=== PATIENT | male | born 1950 | race Hispanic/Latino ===

== ENCOUNTER 2019-08-15 11:41 | Emergency (ER) | payer BC ==
--- NOTE | 2019-08-15 11:50 | Event Note ---
ED Screening Note Date of service: 08/15/19 Time: 11:46 ED Screening Note: This is a 68 y.o. M. that presents to the ER with left sided facial paralysis since last night. PMH of HTN States symptoms started last night around 1900. Patient also reports left ear pain. This initial assessment/diagnostic orders/clinical plan/treatment(s) is/are subject to change based on patients health status, clinical progression and re- assessment by fellow clinical providers in the ED. Further treatment and workup at subsequent clinical providers discretion. Patient/guardian urged not to elope from the ED as their condition may be serious if not clinically assessed and managed. Initial orders include: Stroke protocol
--- NOTE | 2019-08-15 12:21 | Cat Scan Report ---
NONENHANCED CT SCAN OF THE BRAIN: INDICATION: MAIN: neuro deficits <6hrs or sx present upon awakening LT SIDE DROOP SLURRED SPEECH LKW LAST NIGHT . TECHNIQUE: Routine CT head without contrast. Sagittal and coronal reformatted images were obtained. A ll CT scans at this location are performed using CT dose reduction for ALARA by means of automated ex posure control. COMPARISON: None. FINDINGS: BRAIN / INTRACRANIAL CONTENTS: Hemorrhage:No intracranial hemorrhage; no subarachnoid hemorrhage Stroke mimics: None Acute/subacute territorial infarction: Hussein-white matter interface: No blurring; normal Insular cortex: Normal Basal ganglia: Normal Wedge shaped parenchymal low density area: Not present Cortical sulci: Not effaced Acute/subacute Lacunar infarctions: None Vasculopathy: Dense middle cerebral artery sign: Not present Internal carotid artery terminus: Normal Basilar artery:Normal Middle cerebral artery branches in the sylvian fissure (Dot sign): Normal Calcified embolus: Not present ASPECT score: Not applicable Chronic lesions: Chronic ischemic lesions are seen in the right corpus stratum. Craniocervical junction:No significant abnormality Orbits:No significant abnormality Paranasal sinuses/mastoids:No significant abnormality Additional findings: None IMPRESSION: No intracerebral hemorrhage or stroke mimics No acute/subacute infarction This exam was performed as part of a code stroke protocol. The exam was completed at on 08/15/2019 11:1 0 AM. The exam was reviewed at and was notified at . Signer Name: Cyndee Womack MD Signed: 08/15/2019 12:17 PM Workstation Name: [employer]
[2019-08-15 12:49] LABS: Basophils % (Auto) 0.5 % (0.0-1.8); Eosinophils # (Auto) 0.1 K/mm3 (0.0-0.4); Eosinophils % (Auto) 1.2 % (0.0-4.3); Hematocrit 42.6 % (35.5-45.6); Hemoglobin 14.7 gm/dl (11.8-15.2); Lymphocytes # (Auto) 1.2 K/mm3 (1.2-5.4); Lymphocytes % (Auto) 15.9 % (13.4-35.0); Mean Corpuscular HGB Conc 34 % (32-34); Mean Corpuscular Volume 95 fl (84-94); Monocytes # (Auto) 0.4 K/mm3 (0.0-0.8); Platelet Count 288 K/mm3 (140-440); Red Blood Count 4.48 M/mm3 (3.65-5.03); Red Cell Distribution Width 13.8 % (13.2-15.2)
[2019-08-15 13:08] LABS: INR 0.96 (0.87-1.13); Partial Thromboplastin Time 29.6 Sec. (24.2-36.6)
[2019-08-15 13:11] LABS: BUN/Creatinine Ratio 20; Blood Urea Nitrogen 18 mg/dL (9-20); Calcium 9.6 mg/dL (8.4-10.2); Hemolysis Index 3
[2019-08-15 13:50] VITALS: BP 171/94
--- NOTE | 2019-08-15 14:01 | Emergency Department Report ---
HPI - General Chief Complaint: Neuro Symptoms/Deficit Time Seen by Provider: 08/15/19 11:46 - HPI HPI: Room 19 The patient is a 68-year-old male present with a chief complaint of left facial weakness. The patient states he was in the bathroom looking in the mirror last night when he noticed a small was not symmetric. Patient denies ever having dysarthria dysphasia or paresthesia. Patient denies extremity weakness. Patient denies headache. Patient states she has had a drainage coming from his left ear for the past 10 days after using a mohr to scratch it. Patient denies history of fever ED Past Medical Hx - Past Medical History Previous Medical History?: Yes Hx Hypertension: Yes - Surgical History Past Surgical History?: Yes Additional Surgical History: elbow surgery - Family History Family history: no significant - Social History Smoking Status: Never Smoker Substance Use Type: None - Medications Home Medications: Home Medications Medication Instructions Recorded Confirmed Last Taken Type Acyclovir [Zovirax Tab] 400 mg PO 5XD #50 tab 08/15/19 Unknown Rx Dextran 70/Hypromellose 2 drops OS PRN PRN #15 ml 08/15/19 Unknown Rx [Artificial Tears] predniSONE [Deltasone] 80 mg PO QDAY #28 tab 08/15/19 Unknown Rx ED Review of Systems ROS: Stated complaint: POSS STROKE Other details as noted in HPI Constitutional: no symptoms reported Eyes: denies: eye pain ENT: denies: throat pain Respiratory: no symptoms reported Cardiovascular: denies: chest pain Endocrine: no symptoms reported Gastrointestinal: denies: abdominal pain Genitourinary: denies: dysuria Neurological: denies: headache, numbness, paresthesias Physical Exam - Physical Exam Vital Signs: Vital Signs 08/15/19 08/15/19 11:44 13:49 Temperature 97.9 F Pulse Rate 96 H 86 Respiratory 18 16 Rate Blood Pressure 209/111 Blood Pressure 171/94 [Left] O2 Sat by Pulse 97 98 Oximetry Physical Exam: GENERAL: The patient is well-developed well-nourished male sitting on stretcher not appear to be in acute distress. [] HEENT: Normocephalic. Atraumatic. Extraocular motions are intact. Patient has moist mucous membranes. TMs obscured by cerumen bilaterally NECK: Supple. Trachea midline CHEST/LUNGS: Clear to auscultation. There is no respiratory distress noted. HEART/CARDIOVASCULAR: Regular. There is no tachycardia. There is no gallop rub or murmur. ABDOMEN: Abdomen is soft, nontender. Patient has normal bowel sounds. There is no abdominal distention. SKIN: There is no rash. There is no edema. There is no diaphoresis. NEURO: The patient is awake, alert, and oriented. The patient is cooperative. The patient has no focal neurologic deficits. The patient has normal speech and gait. MUSCULOSKELETAL: There is no tenderness or deformity. There is no limitation range of motion. There is no evidence of acute injury. 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 Recommends prednisone acyclovir and artificial tears. ED Medical Decision Making - Lab Data Result diagrams: 08/15/19 12:14 08/15/19 12:14 Laboratory Tests 08/15/19 08/15/19 08/15/19 12:14 12:14 12:14 WBC 7.8 RBC 4.48 Hgb 14.7 Hct 42.6 MCV 95 H MCH 33 H MCHC 34 RDW 13.8 Plt Count 288 Lymph % (Auto) 15.9 [place] % (Auto) 5.0 Eos % (Auto) 1.2 Baso % (Auto) 0.5 Lymph # 1.2 [place] # 0.4 Eos # 0.1 Baso # 0.0 Seg Neutrophils % 77.4 H Seg Neutrophils # 6.0 PT 12.9 INR 0.96 APTT 29.6 Thrombin Time Sodium 139 Potassium 4.2 Chloride 99.6 Carbon Dioxide 23 Anion Gap 21 BUN 18 Creatinine 0.9 Estimated GFR > 60 BUN/Creatinine Ratio 20 Glucose 110 H Calcium 9.6 Troponin T < 0.010 08/15/19 12:14 WBC RBC Hgb Hct MCV MCH MCHC RDW Plt Count Lymph % (Auto) [place] % (Auto) Eos % (Auto) Baso % (Auto) Lymph # [place] # Eos # Baso # Seg Neutrophils % Seg Neutrophils # PT INR APTT Thrombin Time 16.0 Sodium Potassium Chloride Carbon Dioxide Anion Gap BUN Creatinine Estimated GFR BUN/Creatinine Ratio Glucose Calcium Troponin T - Radiology Data Radiology results: report reviewed (CT head), image reviewed (CT head) [facility] [address] [place] [address] Cat Scan Report Signed Patient: DAI CHOWDARY MR#: [id number] : 1950 Acct:[id number] Age/Sex: 68 / M ADM Date: 08/15/19 Loc: ED Attending Dr: Ordering Physician: BEAU HANNAH Date of Service: 08/15/19 Procedure(s): CT head/brain wo con Accession Number(s): [id number] cc: BEAU HANNAH NONENHANCED CT SCAN OF THE BRAIN: INDICATION: MAIN: neuro deficits <6hrs or sx present upon awakening LT SIDE DROOP SLURRED SPEECH LKW LAST NIGHT. TECHNIQUE: Routine CT head without contrast. Sagittal and coronal reformatted images were obtained. All CT scans at this location are performed using CT dose reduction for ALARA by means of automated exposure control. COMPARISON: None. FINDINGS: BRAIN / INTRACRANIAL CONTENTS: Hemorrhage:No intracranial hemorrhage; no subarachnoid hemorrhage Stroke mimics: None Acute/subacute territorial infarction: Hussein-white matter interface: No blurring; normal Insular cortex: Normal Basal ganglia: Normal Wedge shaped parenchymal low density area: Not present Cortical sulci: Not effaced Acute/subacute Lacunar infarctions: None Vasculopathy: Dense middle cerebral artery sign: Not present Internal carotid artery terminus: Normal Basilar artery:Normal Middle cerebral artery branches in the sylvian fissure (Dot sign): Normal Calcified embolus: Not present ASPECT score: Not applicable Chronic lesions: Chronic ischemic lesions are seen in the right corpus stratum. Craniocervical junction:No significant abnormality Orbits:No significant abnormality Paranasal sinuses/mastoids:No significant abnormality Additional findings: None IMPRESSION: No intracerebral hemorrhage or stroke mimics No acute/subacute infarction This exam was performed as part of a code stroke protocol. The exam was completed at on 08/15/2019 11:10 AM. The exam was reviewed at and was notified at . Signer Name: Cyndee Womack MD Signed: 08/15/2019 12:17 PM Workstation Name: [email or web address] Transcribed By: ELIS Dict ated By: Cyndee Esparza MD Electronically Authenticated By: Cyndee Esparza MD Signed Date/Time: 08/15/19 121 DD/ TD/TT: - Differential Diagnosis Kauffman's palsy, CVA Critical care attestation.: If time is entered above; I have spent that time in minutes in the direct care of this critically ill patient, excluding procedure time. ED Disposition Clinical Impression: Kauffman's palsy Disposition: DC-01 TO HOME OR SELFCARE Is pt being admited?: No Does the pt Need Aspirin: No Condition: Stable Instructions: Kauffman Palsy (ED) Additional Instructions: Return to the emergency department should you develop worsening symptoms, inability to tolerate food or liquids, high fever or any other concerns Prescriptions: Dextran 70/Hypromellose [Artificial Tears] 2 drops OS PRN PRN #15 ml PRN Reason: Dry Eye(S) predniSONE [Deltasone] 80 mg PO QDAY #28 tab Acyclovir [Zovirax Tab] 400 mg PO 5XD #50 tab Referrals: FABRIZIO VIDES MD [Staff Physician] - 3-5 Days (Dr Vides is a neurologist. Please follow-up with him for further evaluation) Time of Disposition: 16:03
[2019-08-15] MEDS ORDERED: cloNIDine 0.2 MG TAB PO ONE (14:36)
[2019-08-15] MEDS ORDERED: ASPIRIN 325 MG TAB PO ONE (14:36)
--- NOTE | 2019-08-15 16:06 | Emergency Department Report ---
ED Neuro Deficit HPI - General Chief Complaint: Neuro Symptoms/Deficit Stated Complaint: POSS STROKE Time Seen by Provider: 08/15/19 11:46 Source: patient Mode of arrival: Ambulatory Limitations: No Limitations - History of Present Illness Initial Comments: CC: L face droop HPI: * ear infection last 7-10 days on left side * he noted last evening at about 1900 L side face droop * some tingling but no sensory changes * noted increased tearing OS as well * no arm or leg symptoms * since symptoms persisted to ER late morning today * no similar symptoms in the past * STAT neuro consult requested by ED provider PMH: HTN Exam: Vital Signs - 24 hr 08/15/19 08/15/19 08/15/19 11:44 13:43 13:46 Temperature 97.9 F Pulse Rate 96 H 84 82 Respiratory 18 17 18 Rate Blood Pressure 209/111 171/94 Blood Pressure [Left] O2 Sat by Pulse 97 98 Oximetry 08/15/19 08/15/19 08/15/19 13:49 14:00 14:16 Temperature Pulse Rate 86 84 79 Respiratory 16 16 15 Rate Blood Pressure 171/94 171/94 Blood Pressure 171/94 [Left] O2 Sat by Pulse 98 98 99 Oximetry 08/15/19 14:30 Temperature Pulse Rate 91 H Respiratory 13 Rate Blood Pressure 171/94 Blood Pressure [Left] O2 Sat by Pulse 97 Oximetry Lab Results 08/15/19 08/15/19 08/15/19 Range/Units 12:14 12:14 12:14 WBC 7.8 (4.5-11.0) K/mm3 RBC 4.48 (3.65-5.03) M/mm3 Hgb 14.7 (11.8-15.2) gm/dl Hct 42.6 (35.5-45.6) % MCV 95 H (84-94) fl MCH 33 H (28-32) pg MCHC 34 (32-34) % RDW 13.8 (13.2-15.2) % Plt Count 288 (140-440) K/mm3 Lymph % (Auto) 15.9 (13.4-35.0) % Wells % (Auto) 5.0 (0.0-7.3) % Eos % (Auto) 1.2 (0.0-4.3) % Baso % (Auto) 0.5 (0.0-1.8) % Lymph # 1.2 (1.2-5.4) K/mm3 Wells # 0.4 (0.0-0.8) K/mm3 Eos # 0.1 (0.0-0.4) K/mm3 Baso # 0.0 (0.0-0.1) K/mm3 Seg Neutrophils % 77.4 H (40.0-70.0) % Seg Neutrophils # 6.0 (1.8-7.7) K/mm3 PT 12.9 (12.2-14.9) Sec. INR 0.96 (0.87-1.13) APTT 29.6 (24.2-36.6) Sec. Thrombin Time (15.1-19.6) Sec. Sodium 139 (137-145) mmol/L Potassium 4.2 (3.6-5.0) mmol/L Chloride 99.6 (98-107) mmol/L Carbon Dioxide 23 (22-30) mmol/L Anion Gap 21 mmol/L BUN 18 (9-20) mg/dL Creatinine 0.9 (0.8-1.5) mg/dL Estimated GFR > 60 ml/min BUN/Creatinine Ratio 20 % Glucose 110 H (75-100) mg/dL Calcium 9.6 (8.4-10.2) mg/dL Troponin T < 0.010 (0.00-0.029) ng/mL 08/15/19 Range/Units 12:14 WBC (4.5-11.0) K/mm3 RBC (3.65-5.03) M/mm3 Hgb (11.8-15.2) gm/dl Hct (35.5-45.6) % MCV (84-94) fl MCH (28-32) pg MCHC (32-34) % RDW (13.2-15.2) % Plt Count (140-440) K/mm3 Lymph % (Auto) (13.4-35.0) % Wells % (Auto) (0.0-7.3) % Eos % (Auto) (0.0-4.3) % Baso % (Auto) (0.0-1.8) % Lymph # (1.2-5.4) K/mm3 Wells # (0.0-0.8) K/mm3 Eos # (0.0-0.4) K/mm3 Baso # (0.0-0.1) K/mm3 Seg Neutrophils % (40.0-70.0) % Seg Neutrophils # (1.8-7.7) K/mm3 PT (12.2-14.9) Sec. INR (0.87-1.13) APTT (24.2-36.6) Sec. Thrombin Time 16.0 (15.1-19.6) Sec. Sodium (137-145) mmol/L Potassium (3.6-5.0) mmol/L Chloride (98-107) mmol/L Carbon Dioxide (22-30) mmol/L Anion Gap mmol/L BUN (9-20) mg/dL Creatinine (0.8-1.5) mg/dL Estimated GFR ml/min BUN/Creatinine Ratio % Glucose (75-100) mg/dL Calcium (8.4-10.2) mg/dL Troponin T (0.00-0.029) ng/mL NIHSS: * LOC - 0 * LOC questions - 0 * LOC commands - 0 * EOM - 0 * VF - 0 * Face - 1 (mild droop lower face, widened palpebral fissue with decreased eye closure) * Motor Upper Ext - 0 * Motor Lower Ext - 0 * Coordination - 0 * Sensory - 0 * Language - 0 * Speech - 0 * Extinction -0 NIHSS total 1 (LMN droop on left) Impression/Recommendations L [place] Palsy * L LMN droop * impaired eye closure * in setting of concurrent ear infection * suspect L facial nerve inflammation most consistent with Kauffman's Palsy * 1 week course of Acyclovir and Prednisone to optimize recovery (90-95% chance of complete/near-complete recovery with early treatment) * eye care with daytime artificial tears and nighttime ointment/patching to prevent dry eye/corneal abrasion * OK D/c from ED this evening * discussed with ED provider - Related Data Home Medications: Previous Rx's Medication Instructions Recorded Last Taken Type Acyclovir [Zovirax Tab] 400 mg PO 5XD #50 tab 08/15/19 Unknown Rx Dextran 70/Hypromellose 2 drops OS PRN PRN #15 ml 08/15/19 Unknown Rx [Artificial Tears] predniSONE [Deltasone] 80 mg PO QDAY #28 tab 08/15/19 Unknown Rx Allergies/Adverse Reactions: Allergies Allergy/AdvReac Type Severity Reaction Status Date / Time No Known Allergies Allergy Unverified 08/15/19 11:42 ED Review of Systems ROS: Stated complaint: POSS STROKE Other details as noted in HPI Constitutional: no symptoms reported Eyes: denies: eye pain ENT: denies: throat pain Respiratory: no symptoms reported Cardiovascular: denies: chest pain Endocrine: no symptoms reported Gastrointestinal: denies: abdominal pain Genitourinary: denies: dysuria Neurological: denies: headache, numbness, paresthesias ED Past Medical Hx - Past Medical History Previous Medical History?: Yes Hx Hypertension: Yes - Surgical History Past Surgical History?: Yes Additional Surgical History: elbow surgery - Social History Smoking Status: Never Smoker Substance Use Type: None - Medications Home Medications: Home Medications Medication Instructions Recorded Confirmed Last Taken Type Acyclovir [Zovirax Tab] 400 mg PO 5XD #50 tab 08/15/19 Unknown Rx Dextran 70/Hypromellose 2 drops OS PRN PRN #15 ml 08/15/19 Unknown Rx [Artificial Tears] predniSONE [Deltasone] 80 mg PO QDAY #28 tab 08/15/19 Unknown Rx ED Neuro Physical Exam - General Limitations: No Limitations Suspected Stroke: No - NIHSS Assessment Interval: Baseline 1a. Level of Consciousness: alert/keenly responsive 1b. LOC Questions: answers both correctly 1c. LOC Commands: performs tasks correctly 2. Best Gaze: normal 3. Visual: no visual loss 4. Facial Palsy: minor paralysis 5b. Motor Arm Right: no drift 5a. Motor Arm Left: no drift 6a. Motor Leg Left: no drift 6b. Motor Leg Right: no drift 7. Limb Ataxia: absent 8. Sensory: normal 9. Best Language: no aphasia 10. Dysarthria: normal 11. Extinction/Inattention: no abnormality Total Score: 1 Stroke Severity: Minor Stroke ED Course Vital Signs 08/15/19 08/15/19 08/15/19 11:44 13:43 13:46 Temperature 97.9 F Pulse Rate 96 H 84 82 Respiratory 18 17 18 Rate Blood Pressure 209/111 171/94 Blood Pressure [Left] O2 Sat by Pulse 97 98 Oximetry 08/15/19 08/15/19 08/15/19 13:49 14:00 14:16 Temperature Pulse Rate 86 84 79 Respiratory 16 16 15 Rate Blood Pressure 171/94 171/94 Blood Pressure 171/94 [Left] O2 Sat by Pulse 98 98 99 Oximetry 08/15/19 14:30 Temperature Pulse Rate 91 H Respiratory 13 Rate Blood Pressure 171/94 Blood Pressure [Left] O2 Sat by Pulse 97 Oximetry - Lab Data Result diagrams: 08/15/19 12:14 08/15/19 12:14 Lab Results 08/15/19 08/15/19 08/15/19 Range/Units 12:14 12:14 12:14 WBC 7.8 (4.5-11.0) K/mm3 RBC 4.48 (3.65-5.03) M/mm3 Hgb 14.7 (11.8-15.2) gm/dl Hct 42.6 (35.5-45.6) % MCV 95 H (84-94) fl MCH 33 H (28-32) pg MCHC 34 (32-34) % RDW 13.8 (13.2-15.2) % Plt Count 288 (140-440) K/mm3 Lymph % (Auto) 15.9 (13.4-35.0) % Wells % (Auto) 5.0 (0.0-7.3) % Eos % (Auto) 1.2 (0.0-4.3) % Baso % (Auto) 0.5 (0.0-1.8) % Lymph # 1.2 (1.2-5.4) K/mm3 Wells # 0.4 (0.0-0.8) K/mm3 Eos # 0.1 (0.0-0.4) K/mm3 Baso # 0.0 (0.0-0.1) K/mm3 Seg Neutrophils % 77.4 H (40.0-70.0) % Seg Neutrophils # 6.0 (1.8-7.7) K/mm3 PT 12.9 (12.2-14.9) Sec. INR 0.96 (0.87-1.13) APTT 29.6 (24.2-36.6) Sec. Thrombin Time (15.1-19.6) Sec. Sodium 139 (137-145) mmol/L Potassium 4.2 (3.6-5.0) mmol/L Chloride 99.6 (98-107) mmol/L Carbon Dioxide 23 (22-30) mmol/L Anion Gap 21 mmol/L BUN 18 (9-20) mg/dL Creatinine 0.9 (0.8-1.5) mg/dL Estimated GFR > 60 ml/min BUN/Creatinine Ratio 20 % Glucose 110 H (75-100) mg/dL Calcium 9.6 (8.4-10.2) mg/dL Troponin T < 0.010 (0.00-0.029) ng/mL 08/15/19 Range/Units 12:14 WBC (4.5-11.0) K/mm3 RBC (3.65-5.03) M/mm3 Hgb (11.8-15.2) gm/dl Hct (35.5-45.6) % MCV (84-94) fl MCH (28-32) pg MCHC (32-34) % RDW (13.2-15.2) % Plt Count (140-440) K/mm3 Lymph % (Auto) (13.4-35.0) % Wells % (Auto) (0.0-7.3) % Eos % (Auto) (0.0-4.3) % Baso % (Auto) (0.0-1.8) % Lymph # (1.2-5.4) K/mm3 Wells # (0.0-0.8) K/mm3 Eos # (0.0-0.4) K/mm3 Baso # (0.0-0.1) K/mm3 Seg Neutrophils % (40.0-70.0) % Seg Neutrophils # (1.8-7.7) K/mm3 PT (12.2-14.9) Sec. INR (0.87-1.13) APTT (24.2-36.6) Sec. Thrombin Time 16.0 (15.1-19.6) Sec. Sodium (137-145) mmol/L Potassium (3.6-5.0) mmol/L Chloride (98-107) mmol/L Carbon Dioxide (22-30) mmol/L Anion Gap mmol/L BUN (9-20) mg/dL Creatinine (0.8-1.5) mg/dL Estimated GFR ml/min BUN/Creatinine Ratio % Glucose (75-100) mg/dL Calcium (8.4-10.2) mg/dL Troponin T (0.00-0.029) ng/mL Critical care attestation.: If time is entered above; I have spent that time in minutes in the direct care of this critically ill patient, excluding procedure time. ED Disposition Clinical Impression: Kauffman's palsy Disposition: DC-01 TO HOME OR SELFCARE Is pt being admited?: No Condition: Stable
== END 2019-08-15 17:18 | disposition home or self-care (01) ==
LOC: ED 11:41
DX: G51.0 Bell's palsy (principal); I10 Essential (primary) hypertension; Z98.890 Other specified postprocedural states; Z79.899 Other long term (current) drug therapy
CPT/HCPCS: 36415; 70450; 80048; 84484; 85025; 85610; 85670; 85730; 93005; 93010